=== PATIENT | male | born 1955 | race Caucasian/White ===

== ENCOUNTER 2019-06-08 16:57 | Inpatient (IN) | payer OTHER ==
[~2019-06-08] VITALS: Ht 175.3 cm; Wt 88.0 kg
[2019-06-08] MEDS ORDERED: LORAZEPAM 2 MG/1 ML VIAL IV ONE ×2 (17:15→20:00)
[2019-06-08] MEDS ORDERED: ACETAMINOPHEN ES 500 MG TABLET PO ONE (17:15)
[2019-06-08] MEDS ORDERED: IV NORMAL SALINE 1000 ML BAG IV ONE ×2 (17:15→18:45)
--- NOTE | 2019-06-08 17:15 | NUR ---
PT IS IN ROOM #1B. DR FRANCO EVALUATED THE PT.
[2019-06-08] MEDS ORDERED: LORAZEPAM 2 MG/1 ML VIAL ONE ×2 (17:17→19:08)
[2019-06-08] MEDS ORDERED: AMPICILLIN IV 2 G in IV NORMAL SALINE 100 ML IV ONE (17:30)
[2019-06-08] MEDS ORDERED: ACYCLOVIR IV 500 MG in IV DEXTROSE 5% 100 ML IV ONE (17:30)
[2019-06-08] MEDS ORDERED: CEFTRIAXONE 2 G in IV DEXTROSE 5% 100 ML IV ONE (17:30)
[2019-06-08] MEDS ORDERED: VANCOMYCIN IV 1,000 MG in IV DEXTROSE 5% 250 ML IV ONE (17:30)
[2019-06-08] MEDS ORDERED: CEFTRIAXONE /D5W 50ML IVPB **ER PYXIS IV ONE (17:47)
[2019-06-08] MEDS ORDERED: CEFTRIAXONE 1 G VIAL ONE (17:48)
[2019-06-08 17:49] LABS: BASOPHILS % (AUTO) 0.5 % (0.0-2.0); HEMATOCRIT 51.3 % (36.7-47.1); HEMOGLOBIN 17.1 g/dL (12.5-16.3); LYMPHOCYTES % (AUTO) 11.1 % (20.5-51.5); MEAN CORPUSCULAR HEMOGLOBIN 30.2 uug (23.8-33.4); MEAN CORPUSCULAR HGB CONC 33 g/dL (32.5-36.3); MEAN CORPUSCULAR VOLUME 90.2 fL (73.0-96.2); MONOCYTES # (AUTO) 0.6 K/uL (2.0-10.0); MONOCYTES % (AUTO) 6.9 % (0.0-11.0); NEUTROPHILS # (AUTO) 7.6 K/uL (1.8-8.9); NEUTROPHILS % (AUTO) 81.5 % (38.5-71.5); PLATELET COUNT (AUTO) 256 K/uL (152-348); RED BLOOD CELL COUNT(AUTO) 5.68 MIL/uL (4.06-5.63); WHITE BLOOD COUNT (AUTO) 9.3 K/uL (3.6-10.2)
[2019-06-08 17:58] LABS: CREATININE 1.4 mg/dL (0.6-1.3); POTASSIUM 3.5 mmol/L (3.5-5.1)
[2019-06-08 18:02] LABS: ACETAMINOPHEN < 2.0 ug/mL (10-30)
[2019-06-08 18:03] LABS: ETHANOL < 3 MG/DL (0-0)
[2019-06-08 18:04] LABS: BILIRUBIN,DIRECT 0.3 mg/dL (0.0-0.2); BILIRUBIN,TOTAL 1.6 mg/dL (0.2-1.0); TOTAL PROTEIN, SERUM 8.2 g/dL (6.4-8.2)
[2019-06-08] MEDS ORDERED: ACETAMINOPHEN ES 500 MG TABLET ONE (18:12)
[2019-06-08 18:21] LABS: THYROID STIMULATING HORMONE 1.076 mIU/mL (0.358-3.740)
[2019-06-08] MEDS ORDERED: ACYCLOVIR 500 MG VIAL IV ONE (18:26)
[2019-06-08] MEDS ORDERED: ONDANSETRON 4 MG/2 ML VIAL ONE (19:00)
--- NOTE | 2019-06-08 19:46 | NUR ---
REPORT GIVEN TO SATURNINO GUZMAN. DR VERDIN WAS PAGED ACCORDING TO DR BOGGS REQUEST.
[2019-06-08] MEDS ORDERED: LIDOCAINE 2% (UROJET) 10 ML JELLY MM ONE ×2 (19:51→20:00)
--- NOTE | 2019-06-08 19:56 | NUR ---
Ulrich catheter inserted, pt tolerated procedure well, urine sample collected, sent to lab.
[2019-06-08 20:06] LABS: *BILIRUBIN,URIN NEGATIVE (NEGATIVE); *BLOOD, URINE 2+ (NEGATIVE); *COLOR,URINE YELLOW (YELLOW); *KETONES,URINE 3+ (NEGATIVE); *UROBILINOGEN,URINE 0.2 E.U./dl (NORMAL); LEUKOCYTE ESTERASE ,URINE NEGATIVE (NEGATIVE); NITRITE, URINE NEGATIVE (NEGATIVE); UGLUCOSE NEGATIVE (NEGATIVE)
[2019-06-08] MEDS ORDERED: AMPICILLIN 2 G VIAL ONE (20:08)
[2019-06-08 20:32] LABS: *CLARITY,URINE HAZY (CLEAR)
[2019-06-08 20:33] LABS: RBC,URINE 50-80 /HPF (0-3); SQUAMOUS EPITHELIAL CELL,UR FEW /HPF (NONE SEEN); WBC,URINE 0-3 /HPF (0-3)
[2019-06-08 20:34] LABS: MUCUS,URINE MODERATE /LPF (0-FEW)
[2019-06-08] MEDS ORDERED: VANCOMYCIN IV 200 ML ONE (20:49)
--- NOTE | 2019-06-08 21:30 | NUR ---
Dr. Rosen on panel call with Dr. Victor Hugo Oconnor. Patient accepted for admission to CCU, diagnosis: viral meningitis.
--- NOTE | 2019-06-08 21:49 | NUR ---
Report given to [facility].
[2019-06-08] MEDS ORDERED: DOCU100C36 PO (21:53)
[2019-06-08] MEDS ORDERED: ATOR10TA PO (21:53)
[2019-06-08] MEDS ORDERED: TADA5TAB2 PO (21:53)
[2019-06-08] MEDS ORDERED: LATA2.5D2 EACHEYE (21:53)
[2019-06-08] MEDS ORDERED: FINA5TAB11 PO (21:53)
[2019-06-08] MEDS ORDERED: BUPR-51 PO (21:53)
[2019-06-08] MEDS: ACYCLOVIR IV 500 MG in IV DEXTROSE 5% 100 ML IV SCH (22:00)
[2019-06-08] MEDS ORDERED: ONDANSETRON 4 MG/2 ML VIAL IV PRN (22:00)
[2019-06-08] MEDS ORDERED: ACETAMINOPHEN 650 MG SUPP.RECT RC PRN (22:00)
[2019-06-08] MEDS ORDERED: ALBUTEROL SULFATE 2.5 MG/3 ML NEBU NEB PRN (22:00)
--- NOTE | 2019-06-08 22:00 | NUR ---
Dr. Victor Hugo Shankar at bedside.
--- NOTE | 2019-06-08 22:40 | NUR ---
[place] DROWSY, BUT ANSWERS QUESTIONS APPROPRIATELY, STATES IS VERY COLD. @ BS [facility]
[2019-06-08 23:00] VITALS: BP 103/64
[2019-06-08] MEDS: IV D5/ 0.9% NACL 1,000 ML IV PRN (23:21)
[2019-06-08 23:23] LABS: *AMPHETAMINE, URINE NEGATIVE (NEGATIVE); *BARBITURATE, URINE NEGATIVE (NEGATIVE); *CANNABINOID, URINE NEGATIVE (NEGATIVE); *COCCAINE, URINE NEGATIVE (NEGATIVE); *OPIATE, URINE NEGATIVE (NEGATIVE); *PHENCYCLIDINE SCREEN,URINE NEGATIVE (NEGATIVE)
[2019-06-08 23:30] VITALS: BP 122/93
[2019-06-09] VITALS (24 sets, daily range): BP systolic 107–144; BP diastolic 61–81
[2019-06-09] MEDS ORDERED: ACYCLOVIR 500 MG VIAL IV ONE (00:36)
[2019-06-09] MEDS: LORAZEPAM 2 MG/1 ML VIAL IV PRN (03:31)
[2019-06-09 05:14] LABS: BASOPHILS % (AUTO) 0.5 % (0.0-2.0); EOSINOPHILS % (AUTO) 0.1 % (0.0-7.0); HEMATOCRIT 42.5 % (36.7-47.1); HEMOGLOBIN 14.3 g/dL (12.5-16.3); LYMPHOCYTES # (AUTO) 1.2 K/uL (20.0-40.0); LYMPHOCYTES % (AUTO) 14.1 % (20.5-51.5); MEAN CORPUSCULAR HEMOGLOBIN 30.3 uug (23.8-33.4); MEAN CORPUSCULAR HGB CONC 34 g/dL (32.5-36.3); MEAN CORPUSCULAR VOLUME 90.1 fL (73.0-96.2); MONOCYTES % (AUTO) 11.8 % (0.0-11.0); NEUTROPHILS # (AUTO) 6.3 K/uL (1.8-8.9); NEUTROPHILS % (AUTO) 73.5 % (38.5-71.5); PLATELET COUNT (AUTO) 213 K/uL (152-348); RED BLOOD CELL COUNT(AUTO) 4.72 MIL/uL (4.06-5.63); WHITE BLOOD COUNT (AUTO) 8.6 K/uL (3.6-10.2)
[2019-06-09 05:22] LABS: BILIRUBIN,TOTAL 0.9 mg/dL (0.2-1.0); CREATININE 1.2 mg/dL (0.6-1.3); MAGNESIUM 1.6 mg/dL (1.8-2.4); POTASSIUM 3.4 mmol/L (3.5-5.1); TOTAL PROTEIN, SERUM 6.7 g/dL (6.4-8.2)
[2019-06-09 05:23] LABS: THYROID STIMULATING HORMONE 0.431 mIU/mL (0.358-3.740)
[2019-06-09] MEDS: ACYCLOVIR IV 500 MG in IV DEXTROSE 5% 100 ML IV SCH ×3 (06:01→21:45)
[2019-06-09] MEDS: MORPHINE SULFATE 2 MG/1 ML DISP.SYRIN IV PRN ×5 (08:31→23:53)
[2019-06-09] MEDS: PANTOPRAZOLE SODIUM 40 MG VIAL IV SCH (09:13)
[2019-06-09] MEDS: VANCOMYCIN IV 1,250 MG in IV DEXTROSE 5% 250 ML IV SCH (09:13)
[2019-06-09] MEDS ORDERED: MAGNESIUM OXIDE 400 MG TABLET PO ONE (09:30)
[2019-06-09] MEDS: POTASSIUM PHOSPHATE MM 7.5 MMOL in IV DEXTROSE 5% 100 ML IV SCH ×2 (10:10→12:45)
[2019-06-09] MEDS: ACETAMINOPHEN 325 MG TABLET PO PRN (10:23)
--- NOTE | 2019-06-09 10:30 | NUR ---
Id services, Dr. Echevarria in the unit to see and examine patient, full report given, orders received and implemented.
[2019-06-09] MEDS: OSELTAMIVIR PHOSPHATE 75 MG CAPSULE PO SCH ×2 (11:37→20:06)
[2019-06-09] MEDS: CEFTRIAXONE 2 G in IV DEXTROSE 5% 100 ML IV SCH ×2 (11:49→23:54)
--- NOTE | 2019-06-09 12:58 | NUR ---
Clinical Pharmacy Note: Vancomycin Pharmacy to Dose Subjective: To start vancomycin in this 64 y/o male for indication of "documented infection" - fevers, clinical symptoms per ID Objective: weight 88kg height 175cm BUN/SCr 16/1.2 wbc 8.6 temp 102.4 Assessment/Plan As renal function appears relatively stable, will start vanco regimen of 1250mg q15hr for estimated trough of 15.4, first dose today at 0900. Will order trough before 4th scheduled dose (not ordered yet). Will also monitor renal function and adjust or dose per level if were to become unstable. Will otherwise follow trough for further dose.
[2019-06-09] MEDS: IV D5/ 0.9% NACL 1,000 ML IV PRN (13:42)
--- NOTE | 2019-06-09 14:51 | NUR ---
3rd call to ID services, awaiting call back.
--- NOTE | 2019-06-09 15:40 | NUR ---
A call from Dr. Echevarria to update pt's of care plan.
--- NOTE | 2019-06-09 15:56 | NUR ---
Attending physician Victor Hugo Mcqueen in the unit and at this time he meet discussed care plan with who remains at bedside.
[2019-06-09] MEDS ORDERED: CEFTRIAXONE 2 G in IV DEXTROSE 5% 50 ML IV SCH (17:30)
[2019-06-09] MEDS ORDERED: CEFTRIAXONE 1 G in IV DEXTROSE 5% 50 ML IV SCH (17:30)
--- NOTE | 2019-06-09 19:30 | NUR ---
Report received. Patient on droplet isolation for viral meningitis. AAO, c/o headaches. On room air, denies SOB. Assessment done. Medicated with Morphine IV for headaches per patient's request. Plan of care discussed; verbalized understanding. Call light within reach. Voided clear lorrie urine per urinal. Addendum: 06/10/19 at 0149 by MAURICE SERNA RN Amended: Links added. Addendum: 06/10/19 at 0151 by MAURICE SERNA RN Amended: Links added.
--- NOTE | 2019-06-09 21:00 | NUR ---
Sleeping after Morphine. Patient's called; updated of condition. Addendum: 06/10/19 at 0151 by MAURICE SERNA RN Amended: Links added.
[2019-06-10] VITALS (12 sets, daily range): BP systolic 97–147; BP diastolic 54–90
[2019-06-10] MEDS: VANCOMYCIN IV 1,250 MG in IV DEXTROSE 5% 250 ML IV SCH ×2 (00:06→15:41)
--- NOTE | 2019-06-10 02:45 | NUR ---
Awake, vomited about 200 ml of green gastric fluids. Medicated with Zofran IV. Am care rendered. Patient cooperative.
[2019-06-10] MEDS: IV D5/ 0.9% NACL 1,000 ML IV PRN ×2 (04:57→23:41)
[2019-06-10] MEDS: MORPHINE SULFATE 2 MG/1 ML DISP.SYRIN IV PRN ×4 (05:09→22:08)
--- NOTE | 2019-06-10 05:09 | NUR ---
Able to brush teeth. C/o photo sensitivity; towel provided for patient to block the light. Denies dizziness but c/o headaches. Morphine IV given. Addendum: 06/10/19 at 0612 by MAURICE SERNA RN Amended: Links added.
[2019-06-10 05:12] LABS: BASOPHILS % (AUTO) 0.3 % (0.0-2.0); EOSINOPHILS % (AUTO) 0.3 % (0.0-7.0); HEMATOCRIT 42.2 % (36.7-47.1); HEMOGLOBIN 14.3 g/dL (12.5-16.3); MEAN CORPUSCULAR HEMOGLOBIN 30.5 uug (23.8-33.4); MEAN CORPUSCULAR HGB CONC 34 g/dL (32.5-36.3); MONOCYTES # (AUTO) 1.4 K/uL (2.0-10.0); MONOCYTES % (AUTO) 12.9 % (0.0-11.0); NEUTROPHILS # (AUTO) 7.5 K/uL (1.8-8.9); NEUTROPHILS % (AUTO) 68.5 % (38.5-71.5); PLATELET COUNT (AUTO) 198 K/uL (152-348)
[2019-06-10] MEDS: ACYCLOVIR IV 500 MG in IV DEXTROSE 5% 100 ML IV SCH ×5 (05:14→22:08)
[2019-06-10 05:24] LABS: CREATININE 1.1 mg/dL (0.6-1.3); MAGNESIUM 1.6 mg/dL (1.8-2.4); PHOSPHOROUS 2.4 mg/dL (2.5-4.9); POTASSIUM 3.4 mmol/L (3.5-5.1)
--- NOTE | 2019-06-10 06:08 | NUR ---
Sleeping after Morphine IV for c/o headaches at 0509. VS stable. Droplet isolation maintained. Addendum: 06/10/19 at 0608 by MAURICE SERNA RN Amended: Links added. Addendum: 06/10/19 at 0612 by MAURICE SERNA RN Amended: Links added.
--- NOTE | 2019-06-10 07:30 | NUR ---
RECIEVED PT LYING IN BED, SOUND ASLEEP BUT AROUSABLE. ORIENTEDX3. MAIN IVF IS D5NS AT 80ML/HR INFUSING WELL RT AC. HR IS SR, NO ECTOPY. TEMP 99.3F cOLOR IS GOOD. MOVES ALL EXTREMETIES.
[2019-06-10 08:10] LABS: HEPATITIS A AB, IgM Negative (Negative); HEPATITIS B SURFACE AB Non Reactive (.)
[2019-06-10] MEDS: POTASSIUM PHOSPHATE MM 7.5 MMOL in IV DEXTROSE 5% 100 ML IV SCH ×2 (08:21→12:22)
[2019-06-10] MEDS: MAGNESIUM SULFATE/D5W 100 ML IV SCH ×2 (08:22→11:20)
--- NOTE | 2019-06-10 08:30 | NUR ---
MAGNESIUM 2GMS AND KPHOS REPLCEMENT ORDERED AND STARTED.
--- NOTE | 2019-06-10 08:30 | NUR ---
PT REFUSED TO EAT BRREAKFAST. NO NAUSEA VOMITING NOTED.
[2019-06-10] MEDS: ACETAMINOPHEN 325 MG TABLET PO PRN ×3 (08:32→23:42)
[2019-06-10] MEDS: PANTOPRAZOLE SODIUM 40 MG VIAL IV SCH (08:32)
[2019-06-10] MEDS: OSELTAMIVIR PHOSPHATE 75 MG CAPSULE PO SCH ×2 (08:32→21:35)
--- NOTE | 2019-06-10 09:00 | NUR ---
PT IS DOWNGRADED TO TELEMETRY. SEEN AND EXAMINED BY DR BREEN WITH NEW ORDERS.
--- NOTE | 2019-06-10 11:30 | NUR ---
PT IS GOING TO RM 304. REPORT GIVEN TO ASHIA MATAMOROS. PATIENT AND HIS IS ALSO INFORMED.
--- NOTE | 2019-06-10 11:35 | NUR ---
Clinical Pharmacy Note: Vancomycin Pharmacy to Dose Subjective: To continue vancomycin in this 64 y/o male for indication of "documented infection" - fevers, clinical symptoms per ID Objective: weight 88kg height 175cm BUN/SCr 12/1.1 wbc 11 temp 99.3 Assessment/Plan renal function remains stable, will continue vanco regimen of 1250mg q15hr for estimated trough of 15.4, third dose today at 1500. Will order trough before 4th scheduled dose (due tomorrow am at 0530). RNs endorsed to hold dose if Tr >20. Will check in am and adjust as needed. Will follow
--- NOTE | 2019-06-10 12:00 | NUR ---
PT C/O HILLMAN, LEVEL 8. PT REQUESTED FOR A MORPHINE MEDICATION.
[2019-06-10] MEDS: CEFTRIAXONE 2 G in IV DEXTROSE 5% 100 ML IV SCH ×2 (12:23→23:43)
--- NOTE | 2019-06-10 13:45 | NUR ---
PT IS TRANSFERRED TO [facility] VIA BED. CONDITION IS STABLE.
--- NOTE | 2019-06-10 14:35 | NUR ---
TRANSFERRED PT FROM ICU TO ROOM 304 TELEMETRY. PT ON CODE ENFORCEMENT OFFICER SHOWING SINUS RHYTHM. NO ACUTE DISTRESS NOTED. NO SOB NOTED. IV ON L AC REMOVED IT WAS INFILTRATED. PT RECEIVING IVF. PT ALERT AND ORIENTED X4. PLEASANT AND COOPERATIVE. PT IS ON DROPLET ISOLATION FOR VIRAL MENINGITIS. WILL CONTINUE TO MONITOR FOR COMFORT AND SAFETY.
--- NOTE | 2019-06-10 18:20 | NUR ---
PT RESTING COMFORTABLY IN BED. IV ON R AC REMOVED IT INFILTRATED. NEW IV PLACED ON L WRIST GAUGE 20. IVF RUNNING. MID LINE REQUEST PLACED AT 1530. MIDLINE NURSE TO BE IN AROUND THIS TIME. PT SHOWING SINUS RHYTHM ON TELE MONITORING. PT ALERT AND ORIENTED X4. NO ACUTE DISTRESS NOTED. NO SOB NOTED. PT COMPLAINED OF HEADACHE MORPHINE GIVEN AT 1700. EFFECTIVE. FAMILY AT BEDSIDE. PHARMACY TO EVALUATE COMPATIBILITY OF MEDS IN ORDER TO PROMPTLY ADMINISTER MEDICATIONS HELD DUE TO LACK OF IV ACCESS. WILL ENDORSE TO INCOMING SHIFT ACCORDINGLY.
--- NOTE | 2019-06-10 18:55 | NUR ---
ZOVIRAX GIVEN AT 185 IV ACCESS WAS AVAILABLE AT THIS TIME. DAMIAN MIDLINE INSERTED AT 185.
[2019-06-11] VITALS: BP 128/75
[2019-06-11 04:00] VITALS: BP 132/86
[2019-06-11] MEDS: BENZOCAINE/MENTH/CETYLPYRD LOZENGE MM PRN ×3 (05:20→14:36)
[2019-06-11 05:21] LABS: BASOPHILS # (AUTO) 0.1 K/uL (0.0-8.0); BASOPHILS % (AUTO) 0.9 % (0.0-2.0); EOSINOPHILS # (AUTO) 0.1 K/uL (0.0-0.7); EOSINOPHILS % (AUTO) 1.1 % (0.0-7.0); HEMATOCRIT 43.2 % (36.7-47.1); HEMOGLOBIN 14.7 g/dL (12.5-16.3); LYMPHOCYTES # (AUTO) 2.2 K/uL (20.0-40.0); LYMPHOCYTES % (AUTO) 23.4 % (20.5-51.5); MEAN CORPUSCULAR HEMOGLOBIN 30.3 uug (23.8-33.4); MEAN CORPUSCULAR HGB CONC 34 g/dL (32.5-36.3); MEAN CORPUSCULAR VOLUME 89.1 fL (73.0-96.2); MONOCYTES # (AUTO) 1.1 K/uL (2.0-10.0); MONOCYTES % (AUTO) 11.7 % (0.0-11.0); NEUTROPHILS # (AUTO) 5.9 K/uL (1.8-8.9); NEUTROPHILS % (AUTO) 62.9 % (38.5-71.5); PLATELET COUNT (AUTO) 198 K/uL (152-348); RED BLOOD CELL COUNT(AUTO) 4.85 MIL/uL (4.06-5.63); WHITE BLOOD COUNT (AUTO) 9.4 K/uL (3.6-10.2)
[2019-06-11] MEDS: ACYCLOVIR IV 500 MG in IV DEXTROSE 5% 100 ML IV SCH (05:21)
[2019-06-11 05:33] LABS: CREATININE 1.2 mg/dL (0.6-1.3); PHOSPHOROUS 2.5 mg/dL (2.5-4.9)
[2019-06-11] MEDS: PANTOPRAZOLE SODIUM 40 MG TABLET.DR PO SCH (06:12)
[2019-06-11] MEDS: VANCOMYCIN IV 1,250 MG in IV DEXTROSE 5% 250 ML IV SCH (06:12)
[2019-06-11] MEDS: DOCUSATE SODIUM 100 MG CAPSULE PO SCH (08:49)
[2019-06-11] MEDS: OSELTAMIVIR PHOSPHATE 75 MG CAPSULE PO SCH ×2 (08:49→20:54)
[2019-06-11] MEDS: buPROPion XL 150 MG TAB.SR.24H PO SCH (08:49)
[2019-06-11] MEDS: ACETAMINOPHEN 325 MG TABLET PO PRN ×3 (08:49→20:54)
--- NOTE | 2019-06-11 09:00 | NUR ---
Received patient asleep in bed; easily arousable. AAOx4. Complaining of headache; administer PRN Tylenol and decreased external stimuli. IV on L wrist and midline on DAMIAN intact and patent with IVF and abx running. SR on the monitor. Safety measures implemented. Call light within reach. Will continue to monitor.
[2019-06-11 09:11] LABS: *WEST NILE CSF IGG Positive (Negative)
[2019-06-11 10:07] LABS: *WEST NILE CSF IGM Negative (Negative)
[2019-06-11] MEDS: POTASSIUM PHOSPHATE MM 5 MMOL in IV DEXTROSE 5% 100 ML IV SCH ×3 (10:22→12:26)
[2019-06-11 11:09] VITALS: BP 117/68
[2019-06-11] MEDS: IV D5/ 0.9% NACL 1,000 ML IV PRN (12:26)
--- NOTE | 2019-06-11 13:28 | NUR ---
SS consultation requested by family. FREDY met with patient and patient's Melba today, in the patient's room. Patient was in his bed, awake, resting. Patient is alert, oriented x 4, cooperative, pleasant, and receptive to meeting with this SW. Patient's was also in the room, and she too was receptive to meeting with this SW. SW checked in with the patient, who provided some medical history and reason for current hospitalization. Patient expressed being cooperative with the current treatment plan. Patient also reported hx of anxiety, which he has been prescribed Wellbutrin, however stated that he has not taken Wellbutrin for almost a year and has instead been going to therapy on a regular basis, which has been very helpful for him. Patient stated not having any manager social services concerns at this time. SW also checked in with patient's regarding her self-care. Patient's stated that she is taking time to rest, going home at nights to sleep. Patient's stated that she too does not have any manager social services concerns at this time, however asked about discharge arrangements for when patient returns home. FREDY informed patient and patient's that case mgr Tabby and Leeann would assist them with all discharge arrangements, and that SW would be available for them if any manager social services questions/concerns arise. Patient and patient's expressed understanding and agreement, and thanked FREDY for her time. No further SS interventions needed at this time, however SW will continue to be available for the patient and patient's family, if needed. FREDY met with telephonic case manager Tabby and informed her of above.
--- NOTE | 2019-06-11 13:58 | NUR ---
Clinical Pharmacy Note: Vancomycin Pharmacy to Dose Subjective: To continue vancomycin in this 64 y/o male for indication of "documented infection" - possible viral/bacterial meningitis per ID Objective: weight 88kg height 175cm BUN/SCr 11/1.2 wbc 9.4 temp 102.2 Vancomycin trough today at 0515:6.3 Assessment/Plan Since trough is subtherapeutic, will increase dose to 1250mg IV every 9 hrs(2nd dose today at 1500) and draw trough by 4th dose(ordered tomorrow at 0830) for expected trough around 15.2(ID ordered meningitis dosing-> trough 15-20). Will check level tomorrow for further dosing.
[2019-06-11] MEDS: CEFTRIAXONE 2 G in IV DEXTROSE 5% 100 ML IV SCH (14:35)
[2019-06-11] MEDS ORDERED: VANCOMYCIN IV 1,250 MG in IV DEXTROSE 5% 250 ML IV SCH (15:00)
[2019-06-11 15:11] VITALS: BP 115/69
[2019-06-11] MEDS: AZITHROMYCIN IV 500 MG in IV DEXTROSE 5% 250 ML IV SCH (18:46)
--- NOTE | 2019-06-11 19:30 | NUR ---
Received patient awake and alert in bed, A/Ox4. No distress noted. Complains of constant headache, PRN Tylenol not due for another hour and patient stated he wants to wait for that instead of getting PRN morphine. IV on the left wrist and left upper arm midline intact and patent. Safety measures initiated. Bed is low and locked, call light within reach, patient on droplet precautions. Will continue to monitor.
[2019-06-11 19:55] VITALS: BP 120/72
[2019-06-11] MEDS: LORAZEPAM 2 MG/1 ML VIAL IV PRN (21:52)
[2019-06-12] VITALS: BP 109/50
[2019-06-12] MEDS: IV D5/ 0.9% NACL 1,000 ML IV PRN ×2 (00:28→09:53)
[2019-06-12 04:00] VITALS: BP 118/75
[2019-06-12] MEDS: ACETAMINOPHEN 325 MG TABLET PO PRN (04:36)
[2019-06-12] MEDS: MORPHINE SULFATE 2 MG/1 ML DISP.SYRIN IV PRN (04:45)
--- NOTE | 2019-06-12 06:04 | NUR ---
patient slept intermittently. PRN Tylenol/Morphine given for headache and was effective. Patient also requested PRN Ativan. Safety measures given. IVF running on the left wrist, no s/s of infection or infiltration noted. Will endorse to next shift.
[2019-06-12] MEDS: PANTOPRAZOLE SODIUM 40 MG TABLET.DR PO SCH (06:10)
[2019-06-12] MEDS: OSELTAMIVIR PHOSPHATE 75 MG CAPSULE PO SCH ×2 (08:30→20:14)
[2019-06-12] MEDS: DOCUSATE SODIUM 100 MG CAPSULE PO SCH (08:30)
[2019-06-12] MEDS: buPROPion XL 150 MG TAB.SR.24H PO SCH (08:30)
--- NOTE | 2019-06-12 09:30 | NUR ---
Left wrist IV site noted to be infiltrated. removed IV access, catheter intact. Elevated extremity. Continued IVF on Left upper arm midline. Will continue to monitor closely.
[2019-06-12 10:07] LABS: *HSV 1/2 PCR 1DNA CSF Negative (Negative); *HSV 1/2 PCR 2DNA CSF Negative (Negative)
[2019-06-12 11:43] VITALS: BP 123/68
[2019-06-12] MEDS: CELECOXIB 100 MG CAPSULE PO SCH ×2 (12:01→20:14)
[2019-06-12] MEDS: CEFTRIAXONE 1 G in IV DEXTROSE 5% 50 ML IV SCH (12:01)
[2019-06-12 15:47] VITALS: BP 113/62
[2019-06-12] MEDS: AZITHROMYCIN IV 500 MG in IV DEXTROSE 5% 250 ML IV SCH (17:15)
--- NOTE | 2019-06-12 19:00 | NUR ---
PATIENT ALERT ORIENTED, NO SOB NO CHEST PAIN, TELE MONITOR SINUS RHYTHM SINUS SALVADOR, CONT ON PAIN MANAGEMENT DUE TO HEADACHES, REMAIN IN CONTACT AND DROPLET PRECAUTION, CONT TO MONITOR.
[2019-06-12 20:26] VITALS: BP 123/67
--- NOTE | 2019-06-12 21:12 | NUR ---
DR BREEN MADE ROUNDS WITH ORDER OF TO GIVE CELEBREX 100MG NOW, AND TO CHANGE CELEBREX 200MG Q12 HRS START TOMORROW.
[2019-06-12] MEDS ORDERED: CELECOXIB 100 MG CAPSULE PO SCH (21:15)
[2019-06-12] MEDS: LORAZEPAM 2 MG/1 ML VIAL IV PRN (21:27)
[2019-06-13 00:30] VITALS: BP_SYST 119; BP_SYST 124; BP_DIAS 49; BP_DIAS 77
[2019-06-13] MEDS: IV D5/ 0.9% NACL 1,000 ML IV PRN (02:34)
[2019-06-13 04:50] VITALS: BP 123/75
[2019-06-13] MEDS: PANTOPRAZOLE SODIUM 40 MG TABLET.DR PO SCH (06:03)
--- NOTE | 2019-06-13 06:25 | NUR ---
PATIENT SLEPT MOST OF THE NIGHT, NO SOB NO CHEST PAIN, CELEBREX MEDICATIONS IS EFFECTIVE AT THIS TIME, CONT TO MONITOR, REMAIN IN CONTACT AND DROPLET PRECAUTIONS,
[2019-06-13 06:50] LABS: BASOPHILS # (AUTO) 0.1 K/uL (0.0-8.0); BILIRUBIN,TOTAL 1.2 mg/dL (0.2-1.0); CREATININE 1.1 mg/dL (0.6-1.3); EOSINOPHILS # (AUTO) 0.4 K/uL (0.0-0.7); HEMATOCRIT 46.3 % (36.7-47.1); HEMOGLOBIN 15.4 g/dL (12.5-16.3); LYMPHOCYTES # (AUTO) 1.6 K/uL (20.0-40.0); MAGNESIUM 2.1 mg/dL (1.8-2.4); MEAN CORPUSCULAR HEMOGLOBIN 30.5 uug (23.8-33.4); MEAN CORPUSCULAR HGB CONC 33 g/dL (32.5-36.3); MEAN CORPUSCULAR VOLUME 91.6 fL (73.0-96.2); MONOCYTES # (AUTO) 0.8 K/uL (2.0-10.0); MONOCYTES % (AUTO) 9.2 % (0.0-11.0); NEUTROPHILS # (AUTO) 5.3 K/uL (1.8-8.9); NEUTROPHILS % (AUTO) 64.8 % (38.5-71.5); PHOSPHOROUS 2.9 mg/dL (2.5-4.9); PLATELET COUNT (AUTO) 197 K/uL (152-348); POTASSIUM 3.2 mmol/L (3.5-5.1); RED BLOOD CELL COUNT(AUTO) 5.06 MIL/uL (4.06-5.63); TOTAL PROTEIN, SERUM 6.8 g/dL (6.4-8.2); WHITE BLOOD COUNT (AUTO) 8.2 K/uL (3.6-10.2)
--- NOTE | 2019-06-13 08:00 | NUR ---
RECEIVED PATIENT IN BED AWAKE ALERT AND ORIENTED ON ROOM AIR WITH NO SHORTNES OF BREATH WITH IVF ORDERED ON CONTACT/DROPLET PRECAUTUION ORDERED ANDOBSERVEDTELE IS SRAFEBRILE AT THIS TIME CALL LIGHTS AND PERSONAL BELONGINGS ARE WITHIN EASY REACH MADE COMFORTABLE AND WILL CONTINUE TO OBSERVE.
[2019-06-13] MEDS: DOCUSATE SODIUM 100 MG CAPSULE PO SCH (08:47)
[2019-06-13] MEDS: CELECOXIB 200 MG CAPSULE PO SCH ×2 (08:47→20:13)
[2019-06-13] MEDS: buPROPion XL 150 MG TAB.SR.24H PO SCH (08:48)
[2019-06-13] MEDS: OSELTAMIVIR PHOSPHATE 75 MG CAPSULE PO SCH ×2 (08:48→20:13)
[2019-06-13] MEDS: POTASSIUM CHLORIDE 40 MEQ in IV D5/ 0.9% NACL 1,000 ML IV PRN (09:57)
[2019-06-13] MEDS ORDERED: POTASSIUM CHLORIDE 20 MEQ TAB.PRT.SR PO ONE (11:30)
[2019-06-13] MEDS: CEFTRIAXONE 1 G in IV DEXTROSE 5% 50 ML IV SCH (11:35)
[2019-06-13 12:00] VITALS: BP 100/69
--- NOTE | 2019-06-13 12:30 | NUR ---
REMAIN ON ATB ORDERED WITH NO ADVERSE OR ALLERGIC REACTIONS AT THIS TIME IVF IN PROGRESS ORDERED REMAIN ON DROPLET ISOLATION AND PRECAUTION ORDERED WILL CONTINUE TO OBSERVE.
[2019-06-13 16:00] VITALS: BP_SYST 109; BP_SYST 136; BP_DIAS 62; BP_DIAS 76
--- NOTE | 2019-06-13 16:59 | NUR ---
PATIENT IS REQUESTING FOR SOLID FOOD STATED DR BREEN TOLD HIM HE CAN HAVE IT ANYTIME LEFT HIM A MESSAGE AWAITING FOR RETURN CALL
[2019-06-13] MEDS: AZITHROMYCIN IV 500 MG in IV DEXTROSE 5% 250 ML IV SCH (17:09)
--- NOTE | 2019-06-13 18:18 | NUR ---
DR VERDIN RETURNED CALL WITH ORDER TO FEED PATIENT REGULAR DIET HE ATE AND TOLERATED WELL.
--- NOTE | 2019-06-13 19:30 | NUR ---
PATIENT ALERT ORIENTED, NO SOB NO CHEST PAIN, TELE MONITOR SINUS RHYTHM. PATIENT ON CONT PAIN MANAGEMENT, REMAIN DROPLET PRECAUTION, PATIENT STATE HE STILL HAVE HEADACHES, BUT INTENSITY OF PAIN IS LOT BETTER, CONT TO MONITOR.
[2019-06-13 20:12] VITALS: BP 124/84
[2019-06-13] MEDS: LORAZEPAM 2 MG/1 ML VIAL IV PRN (21:31)
[2019-06-14] VITALS: BP 125/72
--- NOTE | 2019-06-14 | NUR ---
PATIENT HAS EPISODE OF ANXIETY, AND UNABLE TO SLEEP, MEDICATE PATIENT WITH ATIVAN 1MG IV ORDERED, WITH EFFECTIVE RESULTS, CONT TO MONITOR.
[2019-06-14] MEDS: POTASSIUM CHLORIDE 40 MEQ in IV D5/ 0.9% NACL 1,000 ML IV PRN (02:31)
[2019-06-14 04:00] VITALS: BP 107/70
[2019-06-14] MEDS: PANTOPRAZOLE SODIUM 40 MG TABLET.DR PO SCH (06:17)
--- NOTE | 2019-06-14 06:35 | NUR ---
PATIENT SLEPT MOST OF THE NIGHT, NO SOB NO CHEST PAIN. PATIENT PAIN MEDS AND ATIVAN WAS EFFECTIVE AT THIS TIME, REMAINS IN DROPLET PRECAUTION. CONT TO MONITOR.
--- NOTE | 2019-06-14 07:43 | NUR ---
RECEIVED IN BED WITH DROPLET AND CONTACT ISOLATION ORDERED REMAIN ON IVF ORDERED WITH MID LINE INTACT DENIES ABDOMINAL PAIN AT THIS TIME REMAIN ON ATB ORDERED WITH NO ADVERSE OR ALLERGIC REACTIONS AT THIS TIME CALL LIGHTS AND PERSONAL BELONGINGS PLACED WITHIN EASY REACH MADE COMFORTABLE WILL CONTINUE TO OBSERVE.
[2019-06-14] MEDS: DOCUSATE SODIUM 100 MG CAPSULE PO SCH (08:23)
[2019-06-14] MEDS: CELECOXIB 200 MG CAPSULE PO SCH (08:23)
[2019-06-14] MEDS: buPROPion XL 150 MG TAB.SR.24H PO SCH (08:33)
[2019-06-14 11:27] VITALS: BP 107/66
[2019-06-14] MEDS: CEFTRIAXONE 1 G in IV DEXTROSE 5% 50 ML IV SCH (11:44)
--- NOTE | 2019-06-14 12:51 | NUR ---
DISCHARGE PLANNING AWAITING FOR ORDERS MEANWHILE PATIENT CONTINUES ON ATB ORDERED WITH NO ADVERSE OR ALLERGIC REACTIONS AT THIS TIME.SPOUSE IS AT THE BEDSIDE AT THIS TIME.
[2019-06-14] MEDS ORDERED: CELE100C PO (14:33)
[2019-06-14] MEDS ORDERED: FAMO-132 PO (14:33)
[2019-06-14] MEDS ORDERED: AZIT250T PO (14:33)
--- NOTE | 2019-06-14 14:33 | NUR ---
ORDERS NOTED TO DISCHARGE PATIENT HOME TODAY PATIENT AND AWARE SPOUSE STATED THAT SHE HAS AN APPOINTMENT AND WILL BE BACK SOON SHE CAN TO PICK HIM UP.
--- NOTE | 2019-06-14 16:00 | NUR ---
PATIENT DISCHARGED PICKED UP BY HIS BABATUNDE IN SATISFACTORY CONDITION WITH DISCHARGE INSTRUCTIONS AND PATIENT INSTRUCTED THAT HIS MEDICATIONS WAS ELECTRONICALLY SENT TO [facility] AND TO PICK THEM UP AND TO FOLLOW UP WITH HIS PRIMARY DOCTOR WITHIN THE NEXT ONE WEEK AND HE EXPRESSED UNDERSTANDING.
== END 2019-06-14 16:05 | disposition home or self-care (01) | DRG 871 ==
LOC: ER 17:00 → CCU 22:28 → TELE3 06-10 14:29
PROVIDERS: ADMIT Internal Medicine; ATTEND Internal Medicine
PROC: 009U3ZX Drainage of Spinal Canal, Percutaneous Approach, Diagnostic (ICD-10-PCS; principal; 2019-06-08)
PROC: 05HA33Z Insertion of Infusion Device into Left Brachial Vein, Percutaneous Approach (ICD-10-PCS; 2019-06-10)
DX: A41.89 Other specified sepsis (principal); N17.0 Acute kidney failure with tubular necrosis; G92 Toxic encephalopathy; J69.0 Pneumonitis due to inhalation of food and vomit; A87.9 Viral meningitis, unspecified; A87.8 Other viral meningitis; A85.8 Other specified viral encephalitis; D68.59 Other primary thrombophilia; E87.2 Acidosis; E87.1 Hypo-osmolality and hyponatremia; R65.20 Severe sepsis without septic shock; K57.90 Diverticulosis of intestine, part unspecified, without perforation or abscess without bleeding; K44.9 Diaphragmatic hernia without obstruction or gangrene; E66.9 Obesity, unspecified; Z74.09 Other reduced mobility; E78.5 Hyperlipidemia, unspecified; N20.0 Calculus of kidney; F41.9 Anxiety disorder, unspecified; F32.9 Major depressive disorder, single episode, unspecified; E87.6 Hypokalemia; K64.9 Unspecified hemorrhoids; K22.70 Barrett's esophagus without dysplasia; E83.42 Hypomagnesemia; E86.9 Volume depletion, unspecified; N40.0 Benign prostatic hyperplasia without lower urinary tract symptoms; Z87.891 Personal history of nicotine dependence; D75.1 Secondary polycythemia; N28.1 Cyst of kidney, acquired
CPT/HCPCS: 36415; 70030-TC; 70450; 71045; 80307; 82533; 83605; 83735; 84100; 84157; 84443; 85025; 85730; 86592; 86706; 86709; 86803; 87040; 87086; 87205; 87400; 87536; 87806; 89051; 93005; A4663; A9150; C1758; C9113; G0378; G0480; G0480-TC; J0133; J0290; J0456; J0696; J2060; J2270; J2405; J3370; J3475; J3480; J3490; J7030; J7040; J7042; J7060